=== PATIENT | female | born 1985 | race Caucasian/White ===

== ENCOUNTER 2018-02-06 01:40 | Emergency (ER) | payer OTHER ==
[~2018-02-06] VITALS: Ht 157.5 cm; Wt 64.9 kg
[2018-02-06 01:46] VITALS: BP 135/76
[2018-02-06 02:11] VITALS: BP 124/72
== END 2018-02-06 02:09 ==
LOC: MED 01:40
DX: F10.129 Alcohol abuse with intoxication, unspecified (principal); Z88.1 Allergy status to other antibiotic agents; Z88.5 Allergy status to narcotic agent; Z02.89 Encounter for other administrative examinations
CPT/HCPCS: 99283